=== PATIENT | male | born 1950 | race Caucasian/White ===

== ENCOUNTER 2023-05-13 10:13 | Inpatient (IN) | payer OTHER ==
[2023-05-13] MEDS ORDERED: Loperamide HCl 2 MG CAP PO PRN (12:46)
[2023-05-13] MEDS ORDERED: Pepto Bismol Chew TAB PO PRN (12:46)
[2023-05-13] MEDS ORDERED: Meropenem 1 GM in Sodium Chloride 0.9% 100 ML IVPB SCH (13:45)
[2023-05-13] MEDS ORDERED: Meropenem 1 GM VIAL IVPB SCH (14:00)
[2023-05-13] MEDS ORDERED: fentaNYL 50 mcg/mL 1 mL Vial ONE (14:31)
[2023-05-13] MEDS: Vancomycin HCl 125 MG Capsule PO SCH ×2 (15:17→21:04)
[2023-05-13] MEDS: Sodium Chloride 0.9% 1,000 ML IV SCH ×2 (15:18→21:29)
[2023-05-13 15:26] VITALS: BMI 16.1
[2023-05-13] MEDS ORDERED: Carvedilol 6.25 MG TAB PO SCH (17:00)
[2023-05-13] MEDS: Terazosin HCl 5 MG CAP PO SCH (21:04)
[2023-05-13] MEDS: Meropenem 1 GM in Sodium Chloride 0.9% 100 ML IVPB SCH (21:32)
[2023-05-14] MEDS: Vancomycin HCl 125 MG Capsule PO SCH ×4 (02:27→21:15)
[2023-05-14] MEDS: Sodium Chloride 0.9% 1,000 ML IV SCH ×3 (05:30→23:15)
[2023-05-14] MEDS: Meropenem 1 GM in Sodium Chloride 0.9% 100 ML IVPB SCH ×3 (05:30→21:15)
[2023-05-14 06:32] LABS: #Basophils 0.1 thou/uL (0.0-0.2); #Monocytes 0.5 thou/uL (0.11-0.59); #Neutrophils 3.6 thou/uL (1.40-6.50); %Basophils 1.3 % (0.0-1.0); %Eosinophils 0.7 % (0.0-10.0); %Lymphocytes 20.7 % (21.0-51.0); %Monocytes 8.8 % (0.0-10.0); Hematocrit 39.7 % (42.0-52.0); Mean Corpuscular HGB CONC 32.7 g/dL (32.0-36.0); Mean Corpuscular Hemoglobin 30.4 pg (27.0-31.0); Mean Platelet Volume 9.7 fL (7.4-10.4); Platelet Count 292 10x3/uL (130-400); RBC Distribution Width 14.4 % (11.5-14.5); Red Blood Cell (RBC) Count 4.27 mill/uL (4.70-6.10); White Blood Cell (WBC) Count 5.4 10x3/uL (4.8-10.8)
[2023-05-14 06:37] LABS: Anion Gap 13 mmol/L (10-20); BUN (Urea Nitrogen) 22 mg/dL (8.4-25.7); Calc. Creatinine Clearance 54 mL/min (70-130); Calcium 7.6 mg/dL (7.8-10.44); Carbon Dioxide 18 mmol/L (23-31); Chloride 110 mmol/L (98-107); Estimated GFR 89; Glucose 63 mg/dL (83-110); Potassium 4.5 mmol/L (3.5-5.1); Sodium 136 mmol/L (136-145)
[2023-05-14] MEDS: Carvedilol 3.125 MG TAB PO SCH ×2 (08:34→17:51)
[2023-05-14] MEDS: DULoxetine 30 MG CAP PO SCH (08:42)
[2023-05-14] MEDS: Tamsulosin HCl 0.4 MG CAP PO SCH (08:42)
[2023-05-14] MEDS ORDERED: Lisinopril 5 MG TAB PO SCH (09:00)
[2023-05-14] MEDS: Bicalutamide 50 MG TAB PO SCH (09:02)
[2023-05-14] MEDS ORDERED: Vancomycin (BATCH) 1.5 GM in Premix 1 BAG IVPB SCH (10:00)
[2023-05-14] MEDS ORDERED: Fentanyl 250 MCG/5 ML VIAL ONE (11:35)
[2023-05-14] MEDS ORDERED: PROPOFOL 20 ML ONE (11:35)
[2023-05-14] MEDS ORDERED: Dexamethasone 4 mg/ml Vial ONE (11:35)
[2023-05-14] MEDS ORDERED: Lidocaine 2% PF 5 ML VIAL ONE (11:35)
[2023-05-14] MEDS ORDERED: Ketamine In 0.9 % NaCl 50 MG/5 ML SYRINGE ONE (11:47)
[2023-05-14] MEDS ORDERED: Midazolam HCl 2 mg/2 ml Vial ONE ×2 (11:48→12:18)
[2023-05-14] MEDS ORDERED: Ondansetron PF 4 MG/2 ML Vial ONE (12:31)
[2023-05-14] MEDS ORDERED: Morphine 2 MG/ML VIAL SLOW IVP PRN (12:44)
[2023-05-14] MEDS ORDERED: HYDROcodone/Acetaminophen 5/325 mg Tablet PO PRN (12:44)
[2023-05-14] MEDS ORDERED: HYDROcodone/Acetaminophen 7.5/325 mg Tablet PO PRN (12:44)
[2023-05-14] MEDS ORDERED: Ondansetron HCl/PF 4 MG/2 ML Vial IVP PRN (12:52)
[2023-05-14] MEDS ORDERED: Promethazine HCl 25 MG/ML VIAL IM PRN (12:52)
[2023-05-14] MEDS ORDERED: Iopamidol 15 ML ONE (13:02)
[2023-05-14] MEDS: Terazosin HCl 5 MG CAP PO SCH (21:15)
[2023-05-15] MEDS: Vancomycin HCl 125 MG Capsule PO SCH ×4 (02:45→20:37)
[2023-05-15 05:44] LABS: Hematocrit 35.3 % (42.0-52.0); Hemoglobin 11.7 g/dL (14.0-18.0); Mean Corpuscular HGB CONC 33.1 g/dL (32.0-36.0); Mean Corpuscular Hemoglobin 30.5 pg (27.0-31.0); Mean Corpuscular Volume 91.9 fl (78.0-98.0); Mean Platelet Volume 9.4 fL (7.4-10.4); Platelet Count 292 10x3/uL (130-400); RBC Distribution Width 14.4 % (11.5-14.5); Red Blood Cell (RBC) Count 3.84 mill/uL (4.70-6.10); White Blood Cell (WBC) Count 4.2 10x3/uL (4.8-10.8)
[2023-05-15 05:50] LABS: Delete Auto Diff?? YES; Manual Diff?? YES
[2023-05-15] MEDS: Meropenem 1 GM in Sodium Chloride 0.9% 100 ML IVPB SCH ×3 (06:06→21:04)
[2023-05-15 06:11] LABS: Anion Gap 17 mmol/L (10-20); BUN (Urea Nitrogen) 26 mg/dL (8.4-25.7); Calc. Creatinine Clearance 51 mL/min (70-130); Calcium 7.1 mg/dL (7.8-10.44); Carbon Dioxide 16 mmol/L (23-31); Chloride 112 mmol/L (98-107); Estimated GFR 82; Glucose 58 mg/dL (83-110); Potassium 4.5 mmol/L (3.5-5.1); Sodium 140 mmol/L (136-145)
[2023-05-15] MEDS: Sodium Chloride 0.9% 1,000 ML IV SCH ×3 (07:43→23:13)
[2023-05-15 08:02] LABS: Band 38 % (5-11); Burr Cells MODERATE= 6-15 cells HPF (0-1); CellaVision Operator ID LAB.GE; Lymphocytes 3 % (21-51); Metamyelocyte 2 % (0-0); Monocytes 5 % (0-10); Neutrophil 52 % (42-75); Platelet Adequacy Comment Platelets Normal; Polychromasia SLIGHT = 2-3 cells HPF (0-2); Total Cell Count 101
[2023-05-15] MEDS: Tamsulosin HCl 0.4 MG CAP PO SCH (08:41)
[2023-05-15] MEDS: DULoxetine 30 MG CAP PO SCH (08:41)
[2023-05-15] MEDS: Bicalutamide 50 MG TAB PO SCH (08:55)
[2023-05-15] MEDS: Terazosin HCl 5 MG CAP PO SCH (20:38)
[2023-05-16] MEDS: Vancomycin HCl 125 MG Capsule PO SCH ×4 (01:57→20:54)
[2023-05-16] MEDS: Sodium Chloride 0.9% 1,000 ML IV SCH ×4 (02:52→22:00)
[2023-05-16] MEDS: Meropenem 1 GM in Sodium Chloride 0.9% 100 ML IVPB SCH ×2 (05:19→14:24)
[2023-05-16 05:27] LABS: Hemoglobin 11.6 g/dL (14.0-18.0); Mean Corpuscular HGB CONC 33.1 g/dL (32.0-36.0); Mean Corpuscular Hemoglobin 30.6 pg (27.0-31.0); Mean Corpuscular Volume 92.3 fl (78.0-98.0); Mean Platelet Volume 9.3 fL (7.4-10.4); Platelet Count 279 10x3/uL (130-400); RBC Distribution Width 14.4 % (11.5-14.5); Red Blood Cell (RBC) Count 3.79 mill/uL (4.70-6.10); White Blood Cell (WBC) Count 4.2 10x3/uL (4.8-10.8)
[2023-05-16 05:56] LABS: Anion Gap 14 mmol/L (10-20); BUN (Urea Nitrogen) 26 mg/dL (8.4-25.7); Calc. Creatinine Clearance 50 mL/min (70-130); Calcium 7.1 mg/dL (7.8-10.44); Carbon Dioxide 16 mmol/L (23-31); Chloride 113 mmol/L (98-107); Estimated GFR 80; Glucose 70 mg/dL (83-110); Potassium 4.4 mmol/L (3.5-5.1); Sodium 139 mmol/L (136-145)
[2023-05-16] MEDS: DULoxetine 30 MG CAP PO SCH (09:20)
[2023-05-16] MEDS: Bicalutamide 50 MG TAB PO SCH (09:20)
[2023-05-16] MEDS: Tamsulosin HCl 0.4 MG CAP PO SCH (09:20)
[2023-05-16] MEDS: metroNIDAZOLE 500 MG TAB PO SCH ×2 (14:24→20:54)
[2023-05-16] MEDS: Amoxicillin/Potassium Clav 875 MG TAB PO SCH (20:54)
[2023-05-16] MEDS: Terazosin HCl 5 MG CAP PO SCH (20:55)
[2023-05-17] MEDS: Vancomycin HCl 125 MG Capsule PO SCH ×4 (02:26→20:39)
[2023-05-17] MEDS: Sodium Chloride 0.9% 1,000 ML IV SCH ×2 (06:06→14:00)
[2023-05-17] MEDS: metroNIDAZOLE 500 MG TAB PO SCH ×3 (08:28→20:40)
[2023-05-17] MEDS: DULoxetine 30 MG CAP PO SCH (08:28)
[2023-05-17] MEDS: Amoxicillin/Potassium Clav 875 MG TAB PO SCH ×2 (08:28→20:40)
[2023-05-17] MEDS: Bicalutamide 50 MG TAB PO SCH (08:28)
[2023-05-17] MEDS: Tamsulosin HCl 0.4 MG CAP PO SCH (08:29)
[2023-05-17] MEDS: Terazosin HCl 5 MG CAP PO SCH (20:40)
[2023-05-18] MEDS: Sodium Chloride 0.9% 1,000 ML IV SCH ×2 (00:06→09:12)
[2023-05-18] MEDS: Vancomycin HCl 125 MG Capsule PO SCH ×3 (01:38→13:54)
[2023-05-18 04:51] LABS: #Eosinphils 0.1 thou/uL (0.0-0.7); #Monocytes 0.5 thou/uL (0.11-0.59); %Basophils 0.6 % (0.0-1.0); %Eosinophils 1.4 % (0.0-10.0); %Lymphocytes 25.5 % (21.0-51.0); %Monocytes 7.6 % (0.0-10.0); %Neutrophils 63.1 % (42.0-75.0); Hematocrit 35.6 % (42.0-52.0); Hemoglobin 11.9 g/dL (14.0-18.0); Mean Corpuscular HGB CONC 33.4 g/dL (32.0-36.0); Mean Corpuscular Hemoglobin 30.4 pg (27.0-31.0); Platelet Count 260 10x3/uL (130-400); RBC Distribution Width 14.6 % (11.5-14.5); Red Blood Cell (RBC) Count 3.91 mill/uL (4.70-6.10); White Blood Cell (WBC) Count 6.3 10x3/uL (4.8-10.8)
[2023-05-18 05:15] LABS: Anion Gap 14 mmol/L (10-20); BUN (Urea Nitrogen) 19 mg/dL (8.4-25.7); Calc. Creatinine Clearance 55 mL/min (70-130); Calcium 7.2 mg/dL (7.8-10.44); Carbon Dioxide 16 mmol/L (23-31); Chloride 114 mmol/L (98-107); Estimated GFR 90; Glucose 72 mg/dL (83-110); Potassium 4.2 mmol/L (3.5-5.1); Sodium 140 mmol/L (136-145)
[2023-05-18] MEDS: metroNIDAZOLE 500 MG TAB PO SCH ×2 (09:11→13:54)
[2023-05-18] MEDS: Amoxicillin/Potassium Clav 875 MG TAB PO SCH (09:12)
[2023-05-18] MEDS: Tamsulosin HCl 0.4 MG CAP PO SCH (09:12)
[2023-05-18] MEDS: Bicalutamide 50 MG TAB PO SCH (09:12)
[2023-05-18] MEDS: DULoxetine 30 MG CAP PO SCH (09:12)
[2023-05-18 16:47] VITALS: BP 112/74; TEMP 97.4
== END 2023-05-18 17:15 | disposition home or self-care (01) | DRG 872 ==
LOC: EEVIPCON → SURG B 12:06
PROVIDERS: ADMIT Internal Medicine; ATTEND Internal Medicine
PROC: 0T913ZZ Drainage of Left Kidney, Percutaneous Approach (ICD-10-PCS; principal; 2023-05-13)
PROC: BT021ZZ Plain Radiography of Left Kidney using Low Osmolar Contrast (ICD-10-PCS; 2023-05-14)
PROC: 0TP Urinary System, Removal (ICD-10-PCS; 2023-05-14)
PROC: 3E03329 Introduction of Other Anti-infective into Peripheral Vein, Percutaneous Approach (ICD-10-PCS; 2023-05-14)
DX: A41.9 Sepsis, unspecified organism (principal); A04.72 Enterocolitis due to Clostridium difficile, not specified as recurrent; N13.2 Hydronephrosis with renal and ureteral calculous obstruction; N39.0 Urinary tract infection, site not specified; N17.9 Acute kidney failure, unspecified; R64 Cachexia; Z68.1 Body mass index [BMI] 19.9 or less, adult; C19 Malignant neoplasm of rectosigmoid junction; C78.7 Secondary malignant neoplasm of liver and intrahepatic bile duct; C79.51 Secondary malignant neoplasm of bone; E46 Unspecified protein-calorie malnutrition; Z51.5 Encounter for palliative care; N13.9 Obstructive and reflux uropathy, unspecified; K52.9 Noninfective gastroenteritis and colitis, unspecified; C80.1 Malignant (primary) neoplasm, unspecified; R65.20 Severe sepsis without septic shock; I10 Essential (primary) hypertension; M19.90 Unspecified osteoarthritis, unspecified site; B95.2 Enterococcus as the cause of diseases classified elsewhere; N40.0 Benign prostatic hyperplasia without lower urinary tract symptoms; C61 Malignant neoplasm of prostate; N40.1 Benign prostatic hyperplasia with lower urinary tract symptoms; R31.9 Hematuria, unspecified; Z96.0 Presence of urogenital implants; Z79.82 Long term (current) use of aspirin; Z79.899 Other long term (current) drug therapy; Z98.890 Other specified postprocedural states; Z80.9 Family history of malignant neoplasm, unspecified
CPT/HCPCS: 36415; 50432; 74420; 76942; 80048; 85025; 85027; J1100; J1650; J2001; J2185; J2250; J2405; J2704; J3010; J3370; J3490; J7050; Q9967